=== PATIENT | male | born 1970 | race Asian ===

== ENCOUNTER 2016-06-11 11:38 | Emergency (ER) | payer OTHER ==
[2016-06-11 11:38] VITALS: BMI 28.3
[2016-06-11 11:46] VITALS: TEMP 98.2
[2016-06-11] MEDS ORDERED: OXYCODONE HCL 5 MG TABLET PO ONE (11:54)
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
--- NOTE | 2016-06-11 13:21 | DIRPT ---
CLINICAL DATA: Right lower extremity posterior calf pain and swelling EXAM: RIGHT LOWER EXTREMITY VENOUS DUPLEX ULTRASOUND TECHNIQUE: Doppler venous assessment of the right lower extremity deep venous system was performed, including characterization of spectral flow, compressibility, and phasicity. COMPARISON: None. FINDINGS: There is complete compressibility of the right common femoral, femoral, and popliteal veins. Doppler analysis demonstrates respiratory phasicity and augmentation of flow upon calf compression. No evidence of calf vein or superficial vein thrombosis. IMPRESSION: No evidence of right lower extremity DVT. Electronically Signed By: Hemanth Nicholas M.D. On: 06/11/2016 13:18
[2016-06-11 13:31] VITALS: BP 180/108; PULSE 74
== END 2016-06-11 13:44 | disposition home or self-care (01) ==
LOC: EDMC 11:38
DX: M54.41 Lumbago with sciatica, right side (principal); M54.16 Radiculopathy, lumbar region; R60.9 Edema, unspecified; I10 Essential (primary) hypertension; F32.9 Major depressive disorder, single episode, unspecified; Z79.899 Other long term (current) drug therapy
CPT/HCPCS: 73590; 73610; 93971; 99283; J3490